=== PATIENT | female | born 1970 ===

== ENCOUNTER 2020-10-04 09:29 | Outpatient (CLI) | payer OTHER | END 2020-10-04 15:00 | disposition home or self-care (01) | LOC: LAB 09:29 | DX: Z11.59 Encounter for screening for other viral diseases (principal) ==

== ENCOUNTER 2020-11-25 08:21 | Outpatient (CLI) | payer OTHER | END 2020-11-25 15:00 | disposition home or self-care (01) | LOC: LAB 08:21 | PROVIDERS: ATTEND Emergency Medicine Pediatric Emergency Medicine | DX: Z11.59 Encounter for screening for other viral diseases (principal); R05 Cough; Z03.818 Encounter for observation for suspected exposure to other biological agents ruled out; Z20.828 Contact with and (suspected) exposure to other viral communicable diseases ==

== ENCOUNTER 2021-04-18 07:20 | Outpatient (CLI) | payer OTHER | END 2021-04-18 07:49 | disposition home or self-care (01) | LOC: LAB 07:20 | PROVIDERS: ATTEND Internal Medicine | DX: Z20.822 Contact with and (suspected) exposure to COVID-19 (principal) ==